=== PATIENT | female | born 1955 | race Caucasian/White ===

== ENCOUNTER → 2019-10-29 11:32 | Outpatient (BNVA) | payer BC, SELFPAY | PROVIDERS: Visit Provider Family Medicine | DX: M06.09 Rheumatoid arthritis without rheumatoid factor, multiple sites (principal) | CPT/HCPCS: 80053; 85007; 85027 ==

== ENCOUNTER → 2022-01-14 11:49 | Outpatient (BNVA) | payer MEDICARE, SELFPAY | PROVIDERS: Visit Provider Family Medicine | DX: R39.9 Unspecified symptoms and signs involving the genitourinary system (principal); N30.90 Cystitis, unspecified without hematuria | CPT/HCPCS: 81000 ==

== ENCOUNTER 2022-09-19 20:00 | Emergency (ER) | payer MEDICARE, SELFPAY ==
--- NOTE | 2022-09-19 20:01 | XRR_ITS ---
PROCEDURE INFORMATION: Exam: XR Chest Exam date and time: 09/19/2022 8:36 PM Age: 67 years old Clinical indication: Pain; Chest pressure; Additional info: Cp TECHNIQUE: Imaging protocol: Radiologic exam of the chest. Views: 1 view. COMPARISON: No relevant prior studies available. FINDINGS: Lungs: Right upper lobe 12 mm nodule, likely reflecting a calcified granuloma, chest CT could confirm this. Pleural spaces: Unremarkable. No pleural effusion. No pneumothorax. Heart/Mediastinum: Unremarkable. No cardiomegaly. Bones/joints: Unremarkable. XR/XR chest 1V portable [id number] IMPRESSION: Right upper lobe 12 mm nodule, likely reflecting a calcified granuloma, chest CT could confirm this.
[2022-09-19 20:04] VITALS: BP 164/91; PULSE 77; RESP 16; TEMP 36.7; O2SAT 97
--- NOTE | 2022-09-19 20:08 | ECG_ITS ---
[facility] Test Date: 2022-09-19 Pat Name: Sindi Linton Department: Room: Gender: Female Production Reproduction Manager: : 1955 Requested By: Sonia Samano Order Number: [id number] Birttney MD: Lorena Sanderson M.D. Measurements Intervals [place] Rate: 71 P: 49 SC: 161 QRS: 7 QRSD: 108 T: 37 QT: 407 QTc: 444 Interpretive Statements SINUS RHYTHM LOW QRS VOLTAGE IN PRECORDIAL LEADS [QRS DEFLECTION < 1.0 mV IN CHEST LEADS] No previous ECG available for comparison Electronically Signed On 09-19-2022 22:24:31 JEWELRY COATER by Lorena Sanderson M.D. [email or web address] Oilmemorial hospitalecoATM/store/NU/[id number] f
[2022-09-19 20:25] VITALS: BP 160/85; PULSE 75; RESP 17; O2SAT 97
--- NOTE | 2022-09-19 20:32 | W.ED.CHESTPA ---
HPI - Chest Pain General: Chief Complaint: Chest Pain Stated Complaint: cp Time Seen by Provider: 09/19/22 20:17 Source: patient Mode of arrival: ambulatory Limitations: no limitations History of Present Illness: 67-year-old female states started having some burning chest pain this afternoon around 1 states she thought it may be reflux she has had reflux multiple times for states its persisted states pain is mild nature she rates it a 2 out of 10 she is in no distress here she denies any worsening proving factors denies any shortness of breath denies any nausea or diaphoresis. Associated symptoms: Deny abdominal pain, dyspnea, fever(s), nausea or vomiting Review of Systems Const: Denies: fever(s), chills, body aches or change in appetite Eyes: Denies: blurry vision or eye discomfort ENMT: Denies: throat pain or dental pain Card: Reports: chest pain Resp: Denies: dyspnea GI: Denies: abdominal pain, nausea, vomiting or diarrhea : Denies: dysuria Musc: Denies: neck pain or back pain Skin/Breast: Denies: rash Neuro: Denies: headache(s) Psych: Denies: depression Tru/Lymph: Denies: easy bruising All/Imm: Denies: urticaria PFSH ED PFSH: Medical History (Updated 09/19/22 @ 21:07 by Sonia Samano MD) No pertinent past medical history Social History (Updated 09/19/22 @ 20:34 by Sonia Samano MD) Smoking and tobacco status: never smoked Substance/Drug Use: never Physical Exam Const: COMMON NORMALS: no acute distress, patient oriented x3 and healthy appearing HENMT: COMMON NORMALS: normocephalic and atraumatic HEAD & SCALP: normocephalic and atraumatic Eye: COMMON NORMALS: Equal, round and reactive pupils present and EOMs intact bilaterally PUPIL: Yes Equal, round and reactive pupils present Neck/C-Spine: COMMON NORMALS: full ROM and supple Chest: COMMONS NORMALS: normal inspection of the chest and normal palpation of entire chest wall Resp: COMMON NORMALS: normal respiratory effort, No retractions, No use of accessory muscles and clear to auscultation bilaterally AUSCULTATION: clear to auscultation bilaterally Cardio: COMMON NORMALS: regular rate, regular rhythm and No murmurs present (Cardio) RATE: regular rate RHYTHM: regular rhythm GI: COMMON NORMALS: Normal to inspection, nondistended, normoactive bowel sounds present, Soft to palpation, non-tender and no masses PALPATION: Yes Soft to palpation Extremity: COMMON NORMALS: normal to inspection and full ROM Neuro: COMMON NORMALS: patient oriented x3, moves all extremities and no focal motor deficits Psych: COMMON NORMALS: mental status grossly normal, Normal thought process present and cooperative THOUGHT PROCESS: Normal thought process present Skin: COMMON NORMALS: no rashes or lesions noted and no wounds GENERAL SKIN EXAM: no rashes or lesions noted Course Vital Signs: Vital signs: Vital Signs Temperature 98.0 F 09/19/22 20:04 Pulse Rate 75 09/19/22 20:25 Respiratory Rate 17 09/19/22 20:25 Blood Pressure 160/85 09/19/22 20:25 Pulse Oximetry 97 09/19/22 20:25 Oxygen Delivery Me thod 09/19/22 20:25 MDM - Chest Pain Medical Decision Making Patient presents here with chest pain is atypical in nature GI cocktail completely took her pain away is likely reflux her troponin here is normal I see no sign of acute coronary syndrome I feel she is stable for discharge she is to follow-up with PCP and return if worsening she understands agrees to plan. Lab Data 09/19/22 20:30 09/19/22 20:30 Radiology Impressions Chest X-Ray 09/19/22 20:01 IMPRESSION: Right upper lobe 12 mm nodule, likely reflecting a calcified granuloma, chest CT could confirm this. Laboratory Results WBC 4.1 10^3/uL (4.0-10.0) 09/19/22 20:30 RBC 4.80 10^6/uL (4.1-5.3) 09/19/22 20:30 Hgb 13.8 g/dL (11.5-15.3) 09/19/22 20:30 Hct 42.7 % (37.0-47.0) 09/19/22 20:30 MCV 89.0 fl (81-99) 09/19/22 20:30 MCH 28.8 pg (28.0-34.0) 09/19/22 20:30 MCHC 32.3 g/dL (30.0-36.0) 09/19/22 20:30 RDW 13.2 % (12.1-15.1) 09/19/22 20:30 Plt Count 228 10^3/cmm (130-400) 09/19/22 20: MPV 9.3 fL (7.4-10.4) 09/19/22 20:30 Neut % (Auto) 69.5 % 09/19/22 20:30 Lymph % (Auto) 21.2 % 09/19/22 20: [place] % (Auto) 8.9 % 09/19/22 20: Eos % (Auto) 0.0 % 09/19/22 20: Baso % (Auto) 0.2 % 09/19/22 20: Neut # (Auto) 2.82 10^3/uL (1.8-7.7) 09/19/22 20: Lymph # (Auto) 0.9 10^3/uL (0.8-4.8) 09/19/22 20: [place] # (Auto) 0.4 10^3/uL (0.2-0.9) 09/19/22 20: Eos # (Auto) 0.0 10^3/uL (0.0-0.8) 09/19/22 20: Baso # (Auto) 0.0 10^3/uL (0.0-0.1) 09/19/22 20: Nucleated RBC % (auto) 0 % 09/19/22 20: Nucleated RBCs # 0.0 /100WBC 09/19/22 20:30 Sodium 139 mmol/L (136-145) 09/19/22 20: Chloride 102 mmol/L (98-107) 09/19/22 20: Carbon Dioxide 26 mmol/L (22-29) 09/19/22 20: BUN 13 mg/dL (8-23) 09/19/22 20: Creatinine 0.9 mg/dL (0.5-0.9) 09/19/22 20: Glucose 90 mg/dL (65-115) 09/19/22 20: Calculated Osmolality 288 mOsm/kg (285-295) 09/19/22 20: Calcium 9.0 mg/dL (8.5-10.5) 09/19/22 20: Total Bilirubin 0.4 mg/dL (0.15-1.2) 09/19/22 20:30 AST 27 U/L (0-32) 09/19/22 20:30 ALT 16 U/L (0-33) 09/19/22 20:30 Alkaline Phosphatase 99 U/L (35-105) 09/19/22 20:30 Troponin T Baseline 7 ng/L (0-10) 09/19/22 20:30 Total Protein 7.0 g/dL (6.6-8.7) 09/19/22 20:30 Albumin 4.3 g/dL (3.5-5.2) 09/19/22 20:30 Globulin 2.7 g/dL (1.3-4.6) 09/19/22 20:30 Discharge Plan Discharge Patient Disposition: Home Clinical Impression: Atypical chest pain Condition: Stable Prescriptions: No Action hydroxychloroquine [Plaquenil] 200 mg tablet 100 mg PO DAILY levothyroxine 100 mcg capsule 100 mcg PO DAILY nitrofurantoin macrocrystal 100 mg capsule 100 mg PO BID 7 Days Qty: 14 0RF Rx Instructions: must administer with a meal/food Discharge Orders: Discharge ED (Routine); Ordered 09/19/22 Ordered By: Sonia Samano Discharge Diet: Advance as tolerated Discharge Activity: Resume usual activity Patient Instructions: Chest Pain (ED) Coding Level of Care Code ED Crystal Inspector for Portia Bailey
[2022-09-19] MEDS: lidocaine 2% viscous 15 ML, aluminum-mag hydrox-simethicon 30 ML, sucralfate oral liq 1 GM PO (20:38)
[2022-09-19 20:44] LABS: Basophils % 0.2 %; Hematocrit 42.7 % (37.0-47.0); Hemoglobin 13.8 g/dL (11.5-15.3); Lymphocytes # 0.9 10^3/uL (0.8-4.8); Lymphocytes % 21.2 %; Mean Corpuscular HGB Conc 32.3 g/dL (30.0-36.0); Mean Corpuscular Hemoglobin 28.8 pg (28.0-34.0); Mean Platelet Volume 9.3 fL (7.4-10.4); Monocytes # 0.4 10^3/uL (0.2-0.9); Monocytes % 8.9 %; Neutrophils # 2.82 10^3/uL (1.8-7.7); Neutrophils % 69.5 %; Nucleated Red Blood Cells % 0 %; Platelet Count 228 10^3/cmm (130-400); Red Cell Distribution Width 13.2 % (12.1-15.1); White Blood Count 4.1 10^3/uL (4.0-10.0)
[2022-09-19 21:01] LABS: Troponin(5th) Baseline 7 ng/L (0-10)
[2022-09-19 21:03] LABS: Alanine Aminotransferase 16 U/L (0-33); Albumin Level 4.3 g/dL (3.5-5.2); Alkaline Phosphatase 99 U/L (35-105); Aspartate Amino Transferase 27 U/L (0-32); Blood Urea Nitrogen 13 mg/dL (8-23); Carbon Dioxide 26 mmol/L (22-29); Chloride 102 mmol/L (98-107); Globulin 2.7 g/dL (1.3-4.6); Glomerular Filtration Rate 62.5 mL/min (90-130); Glucose 90 mg/dL (65-115); Osmolality Calculated 288 mOsm/kg (285-295); Sodium 139 mmol/L (136-145); Total Bilirubin 0.4 mg/dL (0.15-1.2)
[2022-09-19 21:14] VITALS: BP 134/73; PULSE 70; RESP 17; O2SAT 96
[2022-09-19 21:23] LABS: Anion Gap 14.7 (5-19); Potassium 3.7 mmol/L (3.5-5.1)
[2022-09-19 21:27] VITALS: BP 134/73; PULSE 66; RESP 12; O2SAT 98
== END 2022-09-19 21:22 | disposition home or self-care (01) ==
PROVIDERS: Emergency Provider Emergency Medicine
DX: R07.89 Other chest pain (principal)
CPT/HCPCS: 71045; 80053; 84484; 85025; 93005; 99285

== ENCOUNTER → 2023-08-28 14:03 | Outpatient (BNVA) | payer MEDICARE, SELFPAY | PROVIDERS: PCP Family Medicine; Visit Provider Family Medicine | DX: E03.9 Hypothyroidism, unspecified (principal); M06.00 Rheumatoid arthritis without rheumatoid factor, unspecified site; Z13.6 Encounter for screening for cardiovascular disorders | CPT/HCPCS: 80053; 80061; 84443; 85025 ==

== ENCOUNTER 2023-09-24 19:04 | Emergency (ER) | payer MEDICARE, SELFPAY ==
--- NOTE | 2023-09-24 19:06 | XRR_ITS ---
PROCEDURE INFORMATION: Exam: XR Chest Exam date and time: 09/24/2023 7:22 PM Age: 68 years old Clinical indication: Chest wall pain; Additional info: Cp TECHNIQUE: Imaging protocol: Radiologic exam of the chest. Views: 1 view. COMPARISON: CR XR chest 1V portable [id number] 09/19/2022 8:36 PM FINDINGS: Tubes, catheters and devices: Cholecystectomy clips and gastric lap band again noted. Lungs: Chronic calcified granuloma in the right upper lung zone. Minimal streaky scarring in the right mid to lower lung zone, unchanged. Pleural spaces: Unremarkable. No pleural effusion. No pneumothorax. Heart/Mediastinum: Unremarkable. No cardiomegaly. Bones/joints: Unremarkable. XR/XR chest 1V portable [id number] IMPRESSION: No acute plain radiographic cardiopulmonary abnormality or interval change from 09/19/2022.
[2023-09-24 19:07] VITALS: BP 155/82; PULSE 80; RESP 16; TEMP 36.4; O2SAT 97; BMI 36.8
--- NOTE | 2023-09-24 19:08 | ECG_ITS ---
[facility] Test Date: 2023-09-24 Pat Name: Sindi Linton Department: Room: Gender: Female Mutuel Department Manager: : 1955 Requested By: Sonia Samano Order Number: [id number] Brittney MD: Chet Alonzo M.D. Measurements Intervals [place] Rate: 83 P: 55 MO: 174 QRS: -9 QRSD: 110 T: 30 QT: 390 QTc: 459 Interpretive Statements SINUS RHYTHM POSSIBLE ANTERIOR MYOCARDIAL INFARCTION , PROBABLY OLD [30 ms Q WAVE IN V3/V4, OR R < 0.2 mV IN V4] Compared to ECG 09/19/2022 20:08:09 Myocardial infarct finding now present Electronically Signed On 09-25-2023 7:24:26 DEHYDRATION UNIT OPERATOR by Chet Alonzo M.D. [email or web address]/[id number] f
--- NOTE | 2023-09-24 19:08 | ECG_ITS ---
[facility] Test Date: 2023-09-24 Pat Name: Sindi Linton Department: Room: Gender: Female Crew Lead: : 1955 Requested By: Sonia Samano Order Number: [id number] Brittney MD: Chet Alonzo M.D. Measurements Intervals [place] Rate: 83 P: 55 ID: [id number] QRS: -9 QRSD: 110 T: 30 QT: 390 QTc: 459 Interpretive Statements SINUS RHYTHM POSSIBLE ANTERIOR MYOCARDIAL INFARCTION , PROBABLY OLD [30 ms Q WAVE IN V3/V4, OR R < 0.2 mV IN V4] Compared to ECG 09/19/2022 20:08:09 Myocardial infarct finding now present Electronically Signed On 09-25-2023 7:25:30 SOLAR FIELD INSTALLATION CREW MEMBER by Chet Alonzo M.D. [id number] f
[2023-09-24 20:00] VITALS: BP 137/90; PULSE 71; RESP 16; O2SAT 96
[2023-09-24 20:10] LABS: Hematocrit 42.4 % (36-47); Lymphocytes # 0.9 10^3/uL (0.8-4.8); Lymphocytes % 28.3 %; Mean Corpuscular HGB Conc 33.3 g/dL (30-55); Mean Corpuscular Volume 87.2 fl (85-98); Mean Platelet Volume 9.5 fL (7.4-10.4); Monocytes # 0.4 10^3/uL (0.2-0.9); Monocytes % 12.3 %; Neutrophils # 1.93 10^3/uL (1.8-7.7); Neutrophils % 59.4 %; Nucleated Red Blood Cells % 0 %; Platelet Count 206 10^3/cmm (157-399); Red Blood Count 4.86 10^6/uL (3.85-5.65); Red Cell Distribution Width 13.5 % (12.1-15.1); White Blood Count 3.25 10^3/uL (3.29-11.43)
--- NOTE | 2023-09-24 20:18 | W.ED.CHESTPA ---
HPI - Chest Pain General: Chief Complaint: Chest Pain Stated Complaint: cp Time Seen by Provider: 09/24/23 20:00 Source: patient Mode of arrival: ambulatory Limitations: no limitations History of Present Illness: 68-year-old female states that over the last 3 to 4 days she has been having intermittent chest pains she states pains been mild in nature she denies any nausea or diaphoresis. She denies any cough or fever. She states she is currently pain-free she has had a history of reflux. She denies any radiation of her pain. She is not a smoker no known history of heart disease Associated symptoms: Deny abdominal pain, dyspnea, fever(s), nausea or vomiting Review of Systems Const: Denies: fever(s), chills, body aches or change in appetite ENMT: Denies: throat pain or dental pain Card: Reports: chest pain Resp: Denies: dyspnea GI: Denies: abdominal pain, nausea, vomiting or diarrhea : Denies: dysuria Musc: Denies: neck pain or back pain Skin/Breast: Denies: rash Neuro: Denies: headache(s) PFSH ED PFSH: Medical History Seronegative rheumatoid arthritis History of thyroid cancer Hypothyroid Surgical History History of thyroidectomy History of abdominoplasty History of cholecystectomy History of laparoscopic adjustable gastric banding History of total hysterectomy with bilateral salpingo-oophorectomy (BSO) benign, pelvic organ prolapse History of appendectomy Family History Mother Lymphoma Father Prostate cancer Sister Lung cancer smoker Brother Colon cancer Brother CAD (coronary artery disease) Stroke Social History Smoking and tobacco/nicotine status: never used tobacco/nicotine Second hand smoke exposure: No Alcohol intake: never Substance/Drug Use: never Lives independently: Yes Household members: spouse Marital status: Marital status details: 49 years in 2023 Number of children: 3 Number of grandchildren: 6 service: No Current occupational status: retired Previous occupational history: worked at [employer] for 34 years Current gender identity: Female Ariela/Confucianism: L[employer] Special ariela needs: No Agree to transfusion: Yes Physical Exam Const: COMMON NORMALS: no acute distress, patient oriented x3 and healthy appearing HENMT: COMMON NORMALS: normocephalic and atraumatic HEAD & SCALP: normocephalic and atraumatic Neck/C-Spine: COMMON NORMALS: full ROM and supple Chest: COMMONS NORMALS: normal inspection of the chest Resp: COMMON NORMALS: normal respiratory effort and clear to auscultation bilaterally AUSCULTATION: clear to auscultation bilaterally Cardio: COMMON NORMALS: regular rate, regular rhythm and No murmurs present (Cardio) RATE: regular rate RHYTHM: regular rhythm GI: COMMON NORMALS: non-tender Extremity: COMMON NORMALS: normal to inspection and full ROM Neuro: COMMON NORMALS: patient oriented x3, moves all extremities and no focal motor deficits Psych: COMMON NORMALS: mental status grossly normal, Normal thought process present and cooperative THOUGHT PROCESS: Normal thought process present Skin: COMMON NORMALS: no rashes or lesions noted and no wounds GENERAL SKIN EXAM: no rashes or lesions noted Course Vital Signs: Vital signs: Vital Signs Temperature 97.6 F 09/24/23 19:07 Pulse Rate 67 09/24/23 20:53 Respiratory Rate 16 09/24/23 20:53 Blood Pressure 100/64 09/24/23 20:53 Pulse Oximetry 95 09/24/23 20:53 Oxygen Delivery Me thod Room Air 09/24/23 20:53 MDM - Chest Pain Medical Decision Making Patient presents for chest pains atypical in nature has been going on for days her troponin here is negative she has no signs of ACS she is chest pain-free currently no signs of dissection or pulmonary embolism she stable for discharge she is follow-up with PCP and return if worsening Medical Records I reviewed the patient's medical records. Lab Data I reviewed the patient's lab results. 09/24/23 19:42 09/24/23 19:42 Radiology Impressions Chest X-Ray 09/24/23 19:06 IMPRESSION: No acute plain radiographic cardiopulmonary abnormality or interval change from 09/19/2022. Laboratory Results WBC 3.25 10^3/uL (3.29-11.43) L 09/24/23 19:42 RBC 4.86 10^6/uL (3.85-5.65) 09/24/23 19:42 Hgb 14.10 g/dL (11.27-16.99) 09/24/23 19:42 Hct 42.4 % (36-47) 09/24/23 19:42 MCV 87.2 fl (85-98) 09/24/23 19:42 MCH 29.0 pg (27-33) 09/24/23 19:42 MCHC 33.3 g/dL (30-55) 09/24/23 19:42 RDW 13.5 % (12.1-15.1) 09/24/23 19:42 Plt Count 206 10^3/cmm (157-399) 09/24/23 19:42 MPV 9.5 fL (7.4-10.4) 09/24/23 19:42 Neut % (Auto) 59.4 % 09/24/23 19:42 Lymph % (Auto) 28.3 % 09/24/23 19:42 [place] % (Auto) 12.3 % 09/24/23 19:42 Eos % (Auto) 0.0 % 09/24/23 19:42 Baso % (Auto) 0.0 % 09/24/23 19:42 Neut # (Auto) 1.93 10^3/uL (1.8-7.7) 09/24/23 19:42 Lymph # (Auto) 0.9 10^3/uL (0.8-4.8) 09/24/23 19:42 [place] # (Auto) 0.4 10^3/uL (0.2-0.9) 09/24/23 19:42 Eos # (Auto) 0.0 10^3/uL (0.0-0.8) 09/24/23 19:42 Baso # (Auto) 0.0 10^3/uL (0.0-0.1) 09/24/23 19: Nucleated RBC % (auto) 0 % 09/24/23 19: Nucleated RBCs # 0.0 /100WBC 09/24/23 19:42 Sodium 143 mmol/L (136-145) 09/24/23 19:42 Potassium 3.5 mmol/L (3.5-5.1) 09/24/23 19:42 Chloride 104 mmol/L (98-107) 09/24/23 19:42 Carbon Dioxide 28 mmol/L (22-29) 09/24/23 19:42 Anion Gap 14.5 (5-19) 09/24/23 19:42 BUN 16 mg/dL (8-23) 09/24/23 19:42 Creatinine 0.8 mg/dL (0.5-0.9) 09/24/23 19:42 GFR Calculation 71.3 mL/min (90-130) L 09/24/23 19:42 Glucose 114 mg/dL (65-115) 09/24/23 19:42 Calculated Osmolality 298 mOsm/kg (285-295) H 09/24/23 19:42 Calcium 9.2 mg/dL (8.5-10.5) 09/24/23 19:42 Total Bilirubin 0.4 mg/dL (0.15-1.2) 09/24/23 19:42 AST 27 U/L (0-32) 09/24/23 19:42 ALT 24 U/L (0-33) 09/24/23 19:42 Alkaline Phosphatase 103 U/L (35-105) 09/24/23 19:42 Troponin T Baseline 10 ng/L (0-10) 09/24/23 19:42 Total Protein 7.1 g/dL (6.6-8.7) 09/24/23 19:42 Albumin 4.6 g/dL (3.5-5.2) 09/24/23 19:42 Globulin 2.5 g/dL (1.3-4.6) 09/24/23 19:42 Lipase 44 U/L (13-60) 09/24/23 19:42 All radiology interpretation(s) finalized by discharge EKG Data EKG 1: I personally reviewed and interpreted this EKG as follows: EKG interpretation date: 09/24/23 EKG interpretation time: 19:08 Interpretation: nsr hr [address] elevation qrs 110 qtc 430 Discharge Plan Discharge Patient Disposition: Home Clinical Impression: Chest pain Condition: Stable Prescriptions: No Action clobetasol 0.05 % cream topical fluocinonide 0.05 % cream 1 applic topical DAILY fluocinonide 0.05 % solution 1 applic topical .qhs PRN hydroxychloroquine [Plaquenil] 200 mg tablet 200 mg PO DAILY epinephrine 0.3 mg/0.3 mL auto-injector 0.3 mg IM povidone-iodine [Betadine Swabsticks] 10 % swab 1 applic topical ONCE Qty: 1 0RF levothyroxine 112 mcg tablet 112 mcg PO DAILY Qty: 60 0RF Discharge Orders: Discharge ED (Routine); Ordered 09/24/23 Ordered By: Sonia Samano Referrals: Linn Lyon MD [Primary Care Provider] - 1-3 days Discharge Diet: Advance as tolerated Discharge Activity: Resume usual activity Patient Instructions: Chest Pain (ED) Coding Level of Care Code ED Paste Up Artist for Portia Bailey
[2023-09-24 20:36] LABS: Alanine Aminotransferase 24 U/L (0-33); Albumin Level 4.6 g/dL (3.5-5.2); Alkaline Phosphatase 103 U/L (35-105); Anion Gap 14.5 (5-19); Aspartate Amino Transferase 27 U/L (0-32); Blood Urea Nitrogen 16 mg/dL (8-23); Calcium 9.2 mg/dL (8.5-10.5); Carbon Dioxide 28 mmol/L (22-29); Chloride 104 mmol/L (98-107); Creatinine Clr Calc Pharmacy 68.0642; Globulin 2.5 g/dL (1.3-4.6); Glomerular Filtration Rate 71.3 mL/min (90-130); Glucose 114 mg/dL (65-115); Lipase 44 U/L (13-60); Osmolality Calculated 298 mOsm/kg (285-295); Potassium 3.5 mmol/L (3.5-5.1); Sodium 143 mmol/L (136-145); Total Bilirubin 0.4 mg/dL (0.15-1.2); Total Protein 7.1 g/dL (6.6-8.7)
[2023-09-24 20:37] LABS: Troponin(5th) Baseline 10 ng/L (0-10)
[2023-09-24] MEDS: aspirin 81 mg Chew Tablet 324 MG PO (20:40)
[2023-09-24 20:53] VITALS: BP 100/64; PULSE 67; RESP 16; O2SAT 95
[2023-09-24 21:17] VITALS: BP 108/67; PULSE 72; RESP 18; O2SAT 98
== END 2023-09-24 21:18 | disposition home or self-care (01) ==
PROVIDERS: Emergency Provider Emergency Medicine; PCP Family Medicine
DX: R07.9 Chest pain, unspecified (principal); Z85.850 Personal history of malignant neoplasm of thyroid
CPT/HCPCS: 36415; 71045; 80053; 83690; 84484; 85025; 93005; 99285

== ENCOUNTER → 2023-10-07 09:07 | Outpatient (BNVA) | payer MEDICARE, SELFPAY | PROVIDERS: PCP Family Medicine; Referring Provider Family Medicine; Visit Provider Surgery | DX: Z12.11 Encounter for screening for malignant neoplasm of colon (principal) | CPT/HCPCS: 99024; 99203 ==

== ENCOUNTER → 2023-10-27 08:31 | Outpatient (BNVA) | payer MEDICARE, SELFPAY | PROVIDERS: PCP Family Medicine; Visit Provider Family Medicine | DX: E03.9 Hypothyroidism, unspecified (principal) | CPT/HCPCS: 84443 ==

== ENCOUNTER → 2024-01-20 14:54 | Outpatient (BNVA) | payer MEDICARE, SELFPAY | PROVIDERS: PCP Family Medicine; Visit Provider Family Medicine | DX: R35.0 Frequency of micturition (principal) | CPT/HCPCS: 81000 ==

== ENCOUNTER → 2024-07-19 14:24 | Outpatient (BNVA) | payer MEDICARE, SELFPAY | PROVIDERS: PCP Family Medicine; Visit Provider Nurse Practitioner Family | DX: R39.9 Unspecified symptoms and signs involving the genitourinary system (principal) | CPT/HCPCS: 81000 ==

== ENCOUNTER → 2024-08-25 14:44 | Outpatient (BNVA) | payer MEDICARE, SELFPAY | PROVIDERS: PCP Family Medicine; Visit Provider Nurse Practitioner Family | DX: R39.9 Unspecified symptoms and signs involving the genitourinary system (principal); N39.0 Urinary tract infection, site not specified; M65.4 Radial styloid tenosynovitis [de Quervain] | CPT/HCPCS: 81000 ==

== ENCOUNTER 2024-09-19 22:21 | Emergency (ER) | payer MEDICARE, SELFPAY ==
--- NOTE | 2024-09-19 22:27 | ECG_ITS ---
[facility] Test Date: 2024-09-19 Pat Name: Sindi Linton Department: Room: Gender: Female Shipping Order Clerk: : 1955 Requested By: Dilan Bianchi Order Number: [id number] Brittney MD: JASE MARTÍNEZ Measurements Intervals [place] Rate: 78 P: 59 NE: 172 QRS: 29 QRSD: 101 T: 25 QT: 379 QTc: 433 Interpretive Statements SINUS RHYTHM LOW QRS VOLTAGE IN PRECORDIAL LEADS [QRS DEFLECTION < 1.0 mV IN CHEST LEADS] POSSIBLE ANTERIOR MYOCARDIAL INFARCTION , PROBABLY OLD [30 ms Q WAVE IN V3/V4, OR R < 0.2 mV IN V4] INFERIOR MYOCARDIAL INFARCTION , PROBABLY OLD [40+ ms Q WAVE AND/OR ST/T ABNORMALITY IN II/aVF] Compared to ECG 09/24/2023 19:08:26 Low QRS voltage now present Myocardial infarct finding still present Electronically Signed On 09-21-2024 23:36:31 SINTER PRESS OPERATOR by JASE MARTÍNEZ [id number]
[2024-09-19 22:29] VITALS: BP 134/77; PULSE 79; RESP 17; TEMP 36.7; O2SAT 98; BMI 38.7
--- NOTE | 2024-09-19 22:56 | XRR_ITS ---
PROCEDURE INFORMATION: Exam: XR Chest Exam date and time: 09/19/2024 11:11 PM Age: 69 years old Clinical indication: Shortness of breath; Chest pressure; C/O chest pain with SOB. ; Additional info: Cp SOB TECHNIQUE: Imaging protocol: Radiologic exam of the chest. Views: 1 view. COMPARISON: CR XR chest 1V portable [id number] 09/24/2023 7:22 PM FINDINGS: Lungs: Chronic calcified granuloma within right upper lung zone. Persistent minimal streaky scarring within right mid to lower lung zone, unchanged. No focal consolidation. Pleural spaces: Unremarkable. No pleural effusion. No pneumothorax. Heart/Mediastinum: Unremarkable. No cardiomegaly. Bones/joints: Unremarkable. XR/XR chest 1V portable [id number] IMPRESSION: No acute intrathoracic process. No interval change.
--- NOTE | 2024-09-19 23:25 | ECG_ITS ---
[facility] Pat Name: Sindi Linton Department: Room: Gender: Female Scalp Specialist: : 1955 Requested By: Dilan Bianchi Order Number: [id number] Reading MD: JASE MARTÍNEZ Measurements Intervals [place] Rate: 74 P: 62 [place]: 173 QRS: 37 QRSD: 94 T: 38 QT: 400 QTc: 446 Interpretive Statements SINUS RHYTHM LOW QRS VOLTAGE IN PRECORDIAL LEADS [QRS DEFLECTION < 1.0 mV IN CHEST LEADS] POSSIBLE ANTERIOR MYOCARDIAL INFARCTION , PROBABLY OLD [30 ms Q WAVE IN V3/V4, OR R < 0.2 mV IN V4] PROBABLE INFERIOR MYOCARDIAL INFARCTION , OF INDETERMINATE AGE [35 ms Q WAVE IN II/aVF] Compared to ECG 09/24/2023 19:08:26 Low QRS voltage now present Myocardial infarct finding still present Electronically Signed On 09-21-2024 23:36:23 COMPENSATION AGENT by JASE MARTÍNEZ [id number] [id number]
[2024-09-19 23:29] VITALS: BP 156/75; PULSE 78; RESP 23; O2SAT 99
[2024-09-19 23:45] VITALS: BP 149/72; PULSE 70; RESP 15; O2SAT 98
[2024-09-19 23:53] LABS: Hematocrit 39.1 % (36-47); Lymphocytes # 0.8 10^3/uL (0.8-4.8); Lymphocytes % 19.6 %; Mean Corpuscular HGB Conc 32.5 g/dL (30-55); Mean Corpuscular Hemoglobin 28.1 pg (27-33); Mean Corpuscular Volume 86.5 fl (85-98); Mean Platelet Volume 8.9 fL (7.4-10.4); Monocytes # 0.7 10^3/uL (0.2-0.9); Monocytes % 17.1 %; Neutrophils # 2.47 10^3/uL (1.8-7.7); Nucleated Red Blood Cells % 0 %; Platelet Count 201 10^3/cmm (157-399); Red Blood Count 4.52 10^6/uL (3.85-5.65); Red Cell Distribution Width 13.5 % (12.1-15.1); White Blood Count 3.92 10^3/uL (3.29-11.43)
--- NOTE | 2024-09-19 23:53 | ED_ITS ---
HPI - Arrhythmia/Palpitations 2 General: Chief Complaint: Arrhythmia/Palpitations Stated Complaint: Heart Skip Beats Time Seen by Provider: 09/19/24 23:11 History of Present Illness: 69-year-old female with no history of co ronary disease. She presents with essentially palpitations that started at rest this evening at home. She complains of jumping of her heart sensation with associated chest pressure and some shortness of breath. Currently symptoms are resolved. No fever, no cough, no vomiting or diarrhea. She has had some episodes of intermittent vomiting associated with bowel movements Related Data Home Medications ?Medication ?Instructions ?Recorded ?Confirmed epinephrine 0.3 mg/0.3 mL 0.3 mg IM 03/03/23 08/25/24 injection, auto-injector clobetasol 0.05 % topical cream topical 08/28/2308/25 fluocinonide 0.05 % topical cream 1 applic topical MILAD LY 08/28/23 08/25/24 fluocinonide 0.05 % topical 1 applic topical .qhs PRN 08/28/23 08/25/24 solution hydroxychloroquine 200 mg tablet 200 mg PO DAILY 08/2808/25/24 (Plaquenil) Previous Rx's ?Medication ?Instructions ?Recorded famotidine 20 mg tablet 20 mg PO BID #180 tabs 01/19 cefdinir 300 mg capsule 300 mg PO BID 7 days #14 cap s 04/05/24 levothyroxine 112 mcg tablet 112 mcg PO DAILY #90 tabs 06/28/24 prednisone 20 mg tablet 20 mg PO BID #10 tabs sulfamethoxazole 800 1 tab PO BID #14 tabs mg-trimethoprim 160 mg tablet (Bactrim DS) Allergies Allergy/AdvReac Type Severity Reaction Status Date / Time amoxicillin Allergy Mild SWELLING Verified 09/19/24 22:33 ampicillin Allergy Unknown Verified 09/19/24 22:33 azathioprine (From Imuran) Allergy ALGY-Swell Verified 09/19/24 22:33 Lip/Tongue/Throat azithromycin Allergy ALGY-Swell Verified 09/19/24 22:33 Lip/Tongue/Throat Influenza Virus Vaccines Allergy local Verified 09/19/24 22:33 reaction PFSH ED 2 PFSH: Medical History Seronegative rheumatoid arthritis History of thyroid cancer Hypothyroid Surgical History History of thyroidectomy History of abdominoplasty History of cholecystectomy History of laparoscopic adjustable gastric banding History of total hysterectomy with bilateral salpingo-oophorectomy (BSO) benign, pelvic organ prolapse History of appendectomy Family History Mother Lymphoma Diverticula of colon Father Prostate cancer Sister Lung cancer smoker Brother Colon cancer Brother CAD (coronary artery disease) Stroke Social History Smoking and tobacco/nicotine status: never used tobacco/nicotine Second hand smoke exposure: No Alcohol intake: never Substance/Drug Use: never Lives independently: Yes Household members: spouse Marital status: Marital status details: 49 years in 2023 Number of children: 3 Number of grandchildren: 6 service: No Current occupational status: retired Previous occupational history: worked at [employer] for 34 years Current gender identity: Female Ariela/Restorationist: Syn[employer] Special ariela needs: No Agree to transfusion: Yes Physical Exam 2 Const: COMMON NORMALS: no acute distress GENERAL APPEARANCE: cooperative; not ill appearing and not frail appearing HENMT: COMMON NORMALS: normocephalic, atraumatic and Normal external nose present HEAD & SCALP: normocephalic and atraumatic FACE & SINUS: normal facial exam and face symmetric NOSE: Normal external nose present Eye: COMMON NORMALS: Equal, round and reactive pupils present and EOMs intact bilaterally PUPIL: Yes Equal, round and reactive pupils present Neck/C-Spine: GENERAL: Yes trachea midline Chest: CHEST: Yes Symmetrical chest wall rise Resp: COMMON NORMALS: normal respiratory effort, No retractions, No use of accessory muscles and clear to auscultation bilaterally AUSCULTATION: clear to auscultation bilaterally Cardio: COMMON NORMALS: regular rate and regular rhythm RATE: regular rate RHYTHM: regular rhythm GI: COMMON NORMALS: Normal to inspection, nondistended, normoactive bowel sounds present Extremity: COMMON NORMALS: no pedal edema Neuro: IGNACIO COMA SCALE: document GCS findings [place] coma scale eye opening: Spontaneous Ign[place] coma scale verbal response: Orientated [place] coma scale motor response: Obey commands [place] coma scale total score: 15 S ENSORY EXAM: Yes extremities (intact) Psych: COMMON NORMALS: speech normal SPEECH: Yes normal speech Skin: COMMON NORMALS: no rashes or lesions noted GENERAL SKIN EXAM: no rashes or lesions noted Course 2 Vital Signs: Vital signs: Vital Signs Temperature 98.1 F 09/19/24 22:29 Pulse Rate 72 09/20/24 03:22 Respiratory Rate 22 H 09/20/24 03:22 Blood Pressure 121/74 09/20/24 03:22 Pulse Oximetry 93 09/20/24 03:22 Oxygen Delivery Me thod Room Air 09/20/24 01:29 MDM - Arrhythmia/Palpitations Medical Decision Making 69-year-old female with palpitations. EKG shows a normal sinus rhythm no acute ST wave changes. She has been regular on the monitor. Normotensive. CBC is normal. BMP is normal. Chest x-ray shows no acute process. TSH is 5, mildly high. She is asymptomatic at this point. Will release for outpatient follow- up. To return for worsening symptoms. Lab Data 09/19/24 23:43 09/19/24 23:43 Radiology Impressions Chest X-Ray 09/19/24 22:56 IMPRESSION: No acute intrathoracic process. No interval change. Laboratory Results WBC 3.92 10^3/uL (3.29-11.43) 09/19/24 23:43 RBC 4.52 10^6/uL (3.85-5.65) 09/19/24 23:43 Hgb 12.70 g/dL (11.27-16.99) 09/19/24 23:43 Hct 39.1 % (36-47) 09/19/24 23:43 MCV 86.5 fl (85-98) 09/19/24 23:43 MCH 28.1 pg (27-33) 09/19/24 23:43 MCHC 32.5 g/dL (30-55) 09/19/24 23:43 RDW 13.5 % (12.1-15.1) 09/19/24 23:43 Plt Count 201 10^3/cmm (157-399) 09/19/24 23:43 MPV 8.9 fL (7.4-10.4) 09/19/24 23:43 Neut % (Auto) 63.0 % 09/19/24 23:43 Lymph % (Auto) 19.6 % 09/19/24 23:43 [place] % (Auto) 17.1 % 09/19/24 23:43 Eos % (Auto) 0.0 % 09/19/24 23:43 Baso % (Auto) 0.0 % 09/19/24 23:43 Neut # (Auto) 2.47 10^3/uL (1.8-7.7) 09/19/24 23:43 Lymph # (Auto) 0.8 10^3/uL (0.8-4.8) 09/19/24 23:43 [place] # (Auto) 0.7 10^3/uL (0.2-0.9) 09/19/24 23:43 Eos # (Auto) 0.0 10^3/uL (0.0-0.8) 09/19/24 23:43 Baso # (Auto) 0.0 10^3/uL (0.0-0.1) 09/19/24 23:43 Nucleated RBC % (auto) 0 % 09/19/24 23:43 Nucleated RBCs # 0.0 /100WBC 09/19/24 23:43 Sodium 142 mmol/L (136-145) 09/19/24 23:43 Potassium 3.9 mmol/L (3.5-5.1) 09/19/24 23:43 Chloride 106 mmol/L (98-107) 09/19/24 23:43 Carbon Dioxide 25 mmol/L (22-29) 09/19/24 23:43 Anion Gap 14.9 (5-19) 09/19/24 23:43 BUN 18 mg/dL (8-23) 09/19/24 23:43 Creatinine 0.8 mg/dL (0.5-0.9) 09/19/24 23:43 GFR Calculation 71.1 mL/min (90-130) L 09/19/24 23:43 Glucose 98 mg/dL (65-115) 09/19/24 23:43 Calculated Osmolality 296 mOsm/kg (285-295) H 09/19/24 23:43 Calcium 8.7 mg/dL (8.5-10.5) 09/19/24 23:43 Total Bilirubin 0.2 mg/dL (0.15-1.2) 09/19/24 23:43 AST 23 U/L (0-32) 09/19/24 23:43 ALT 17 U/L (0-33) 09/19/24 23:43 Alkaline Phosphatase 103 U/L (35-105) 09/19/24 23:43 Troponin T Baseline 9 ng/L (0-10) 09/19/24 23:43 Troponin T 120 Minute 8.43 ng/L (0-10) 09/20/24 01:26 Delta Troponin T -0.57 ABS# (0-10) L 09/20/24 01:26 NT-Pro-B Natriuret Pep 132 pg/mL (0-125) H 09/19/24 23:43 Total Protein 6.5 g/dL (6.6-8.7) L 09/19/24 23:43 Albumin 4.1 g/dL (3.5-5.2) 09/19/24 23:43 Globulin 2.4 g/dL (1.3-4.6) 09/19/24 23:43 TSH 4.99 uIU/mL (0.27-4.20) H 09/19/24 23:43 All radiology interpretation(s) finalized by discharge Discharge Plan Discharge Patient Disposition: Home Clinical Impression: Palpitations Condition: Stable Prescriptions: No Action clobetasol 0.05 % cream topical fluocinonide 0.05 % cream 1 applic topical DAILY fluocinonide 0.05 % solution 1 applic topical .qhs PRN famotidine 20 mg tablet 20 mg PO BID Qty: 180 3RF sulfamethoxazole-trimethoprim [Bactrim DS] 800-160 mg tablet 1 tab PO BID Qty: 14 0RF prednisone 20 mg tablet 20 mg PO BID Qty: 10 0RF hydroxychloroquine [Plaquenil] 200 mg tablet 200 mg PO DAILY epinephrine 0.3 mg/0.3 mL auto-injector 0.3 mg IM povidone-iodine [Betadine Swabsticks] 10 % swab 1 applic topical ONCE Qty: 1 0RF cefdinir 300 mg capsule 300 mg PO BID 7 Days Qty: 14 0RF levothyroxine 112 mcg tablet 112 mcg PO DAILY Qty: 90 1RF Discharge Orders: Discharge ED (Routine); Ordered 09/20/24 Ordered By: Dilan Howell Referrals: Linn Lyon MD [Primary Care Provider] - 1-3 days Patient Instructions: Heart Palpitations (ED), Opioid Safety, Pain Management Activity Restrictions/Additional Instructions: If available, check your heart rate and blood pressure twice daily. Log numbers for your physician. Return for worsening feelings of heart jumping, chest pressure, any other concerning symptoms. Follow-up with your doctor. Call tomorrow for an appointment. Print Language: American Coding Level of Care Code ED Observer [employer] for Portia Bailey
[2024-09-20 00:16] LABS: Troponin(5th) Baseline 9 ng/L (0-10)
[2024-09-20 00:25] VITALS: BP 126/77; PULSE 69; RESP 14; O2SAT 97
[2024-09-20 00:26] LABS: Alanine Aminotransferase 17 U/L (0-33); Albumin Level 4.1 g/dL (3.5-5.2); Alkaline Phosphatase 103 U/L (35-105); Aspartate Amino Transferase 23 U/L (0-32); Blood Urea Nitrogen 18 mg/dL (8-23); Calcium 8.7 mg/dL (8.5-10.5); Carbon Dioxide 25 mmol/L (22-29); Chloride 106 mmol/L (98-107); Creatinine Clr Calc Pharmacy 69.0194; Globulin 2.4 g/dL (1.3-4.6); Glomerular Filtration Rate 71.1 mL/min (90-130); Glucose 98 mg/dL (65-115); NT Pro B Type Natriuretic Pept 132 pg/mL (0-125); Osmolality Calculated 296 mOsm/kg (285-295); Sodium 142 mmol/L (136-145); Thyroid Stimulating Hormone 4.99 uIU/mL (0.27-4.20); Total Bilirubin 0.2 mg/dL (0.15-1.2); Total Protein 6.5 g/dL (6.6-8.7)
[2024-09-20 00:27] LABS: Anion Gap 14.9 (5-19); Potassium 3.9 mmol/L (3.5-5.1)
[2024-09-20 01:29] VITALS: BP 124/70; PULSE 66; RESP 14; O2SAT 98
[2024-09-20 01:55] LABS: Troponin 5 2HR 8.43 ng/L (0-10)
[2024-09-20 01:56] LABS: Troponin 5 2HR Delta -0.57 ABS# (0-10)
[2024-09-20 03:22] VITALS: BP 121/74; PULSE 72; RESP 22; O2SAT 93
== END 2024-09-20 02:58 | disposition home or self-care (01) ==
PROVIDERS: Emergency Provider Emergency Medicine; PCP Family Medicine
DX: R00.2 Palpitations (principal); Z85.850 Personal history of malignant neoplasm of thyroid
CPT/HCPCS: 36415; 71045; 80053; 83880; 84443; 84484; 85025; 93005; 99285

== ENCOUNTER 2024-09-28 06:00 | Outpatient (RCR) | payer MEDICARE, SELFPAY | END 2024-10-25 23:59 | disposition home or self-care (01) | LOC: TPT 06:00 | PROVIDERS: PCP Family Medicine; Visit Provider Specialist/Technologist Athletic Trainer | DX: M17.12 Unilateral primary osteoarthritis, left knee (principal) | CPT/HCPCS: 97110; 97162 ==

== ENCOUNTER → 2024-10-05 14:26 | Outpatient (BNVA) | payer MEDICARE, SELFPAY | PROVIDERS: PCP Family Medicine; Visit Provider Nurse Practitioner Family | DX: R39.9 Unspecified symptoms and signs involving the genitourinary system (principal); N39.0 Urinary tract infection, site not specified | CPT/HCPCS: 81000; 87086 ==

== ENCOUNTER 2024-10-26 05:00 | Outpatient (RCR) | payer MEDICARE, SELFPAY | END 2024-11-24 23:59 | disposition home or self-care (01) | LOC: TPT 05:00 | PROVIDERS: PCP Family Medicine; Visit Provider Specialist/Technologist Athletic Trainer | DX: M17.12 Unilateral primary osteoarthritis, left knee (principal) | CPT/HCPCS: 97110 ==

== ENCOUNTER 2024-10-28 16:59 | Emergency (ER) | payer MEDICARE, SELFPAY ==
[2024-10-28 17:01] VITALS: BP 184/83; PULSE 76; TEMP 36.6; O2SAT 97; BMI 37.0
--- NOTE | 2024-10-28 17:06 | ECG_ITS ---
[facility] Test Date: 2024-10-28 Pat Name: Sindi Linton Department: Room: Gender: Female President And Chief Executive Officer: : 1955 Requested By: Bladimir Boone Order Number: [id number] Brittney MD: Chet Alonzo M.D. Measurements Intervals [place] Rate: 69 P: 57 TX: 178 QRS: -4 QRSD: 104 T: 30 QT: 404 QTc: 435 Interpretive Statements SINUS RHYTHM LOW QRS VOLTAGE IN PRECORDIAL LEADS [QRS DEFLECTION < 1.0 mV IN CHEST LEADS] POSSIBLE ANTERIOR MYOCARDIAL INFARCTION , PROBABLY OLD [30 ms Q WAVE IN V3/V4, OR R < 0.2 mV IN V4] INTERPRETATION BASED ON A DEFAULT AGE OF 40 YEARS Compared to ECG 09/19/2024 23:25:14 No significant changes Electronically Signed On 10-28-2024 17:34:10 CDT by Chet Alonzo M.D. [id number] [id number]
--- NOTE | 2024-10-28 17:16 | XRR_ITS ---
PROCEDURE INFORMATION: Exam: XR Chest Exam date and time: 10/28/2024 5:28 PM Age: 69 years old Clinical indication: Pain; Chest pressure; Additional info: Chest pain TECHNIQUE: Imaging protocol: Radiologic exam of the chest. Views: 1 view. COMPARISON: CR (CHEST, ) 09/19/2024 11:11 PM FINDINGS: Lungs: Calcified granuloma in the right mid lung field redemonstrated. No focal consolidation. Pleural spaces: Unremarkable. No pleural effusion. No pneumothorax. Heart/Mediastinum: Unremarkable. No cardiomegaly. Bones/joints: Severe degenerative changes in the right acromioclavicular joint. XR/XR chest 1V portable [id number] IMPRESSION: No focal consolidation.
[2024-10-28 17:36] LABS: Hematocrit 43.1 % (36-47); Lymphocytes # 0.7 10^3/uL (0.8-4.8); Lymphocytes % 21.3 %; Mean Corpuscular HGB Conc 32.5 g/dL (30-55); Mean Corpuscular Hemoglobin 27.7 pg (27-33); Mean Corpuscular Volume 85.3 fl (85-98); Monocytes # 0.5 10^3/uL (0.2-0.9); Monocytes % 14.7 %; Neutrophils # 2.14 10^3/uL (1.8-7.7); Nucleated Red Blood Cells % 0 %; Platelet Count 204 10^3/cmm (157-399); Red Blood Count 5.05 10^6/uL (3.85-5.65); White Blood Count 3.34 10^3/uL (3.29-11.43)
--- NOTE | 2024-10-28 17:40 | ED_ITS ---
HPI - Chest Pain 2 General: Chief Complaint: Chest Pain Stated Complaint: CP Time Seen by Provider: 10/28/24 17:16 History of Present Illness: Patient presents to the ER with complaints of left-sided chest pain and epigastric pain. Patient does have issues with gastritis and is on daily Tums antacids and Prilosec. Patient has had these episodes in the past. She is scheduled for Holter monitor for the same issues. Patient is without complaints at this time. Patient denies any nausea vomiting shortness of breath coughs colds fevers chills etc. Related Data Home Medications ?Medication ?Instructions ?Recorded ?Confirmed epinephrine 0.3 mg/0.3 mL 0.3 mg IM 03/03/23 10/05/24 injection, auto-injector clobetasol 0.05 % topical cream topical 08/28/2310/05 fluocinonide 0.05 % topical cream 1 applic topical MILAD LY 08/28/23 10/05/24 fluocinonide 0.05 % topical 1 applic topical .qhs PRN 08/28/23 10/05/24 solution hydroxychloroquine 200 mg tablet 200 mg PO DAILY 08/2810/05/24 (Plaquenil) Previous Rx's ?Medication ?Instructions ?Recorded famotidine 20 mg tablet 20 mg PO BID #180 tabs 01/19 levothyroxine 112 mcg tablet 112 mcg PO DAILY #90 tabs 06/28/24 ciprofloxacin HCl 500 mg tablet 500 mg PO BID #20 tabs 10/05/24 Allergies Allergy/AdvReac Type Severity Reaction Status Date / Time amoxicillin Allergy Mild SWELLING Verified 10/28/24 17:12 ampicillin Allergy Unknown Verified 10/28/24 17:12 azathioprine (From Imuran) Allergy ALGY-Swell Verified 10/28/24 17:12 Lip/Tongue/Throat azithromycin Allergy ALGY-Swell Verified 10/28/24 17:12 Lip/Tongue/Throat Influenza Virus Vaccines Allergy local Verified 10/28/24 17:12 reaction Review of Systems 2 General: Reports: 10 or more systems reviewed and unremarkable except in HPI and below PFSH ED 2 PFSH: Medical History Seronegative rheumatoid arthritis History of thyroid cancer Hypothyroid Surgical History History of thyroidectomy History of abdominoplasty History of cholecystectomy History of laparoscopic adjustable gastric banding History of total hysterectomy with bilateral salpingo-oophorectomy (BSO) benign, pelvic organ prolapse History of appendectomy Family History Mother Lymphoma Diverticula of colon Father Prostate cancer Sister Lung cancer smoker Brother Colon cancer Brother CAD (coronary artery disease) Stroke Social History Smoking and tobacco/nicotine status: never used tobacco/nicotine Second hand smoke exposure: No Alcohol intake: never Substance/Drug Use: never Lives independently: Yes Household members: spouse Marital status: Marital status details: 49 years in 2023 Number of children: 3 Number of grandchildren: 6 service: No Current occupational status: retired Previous occupational history: worked at [employer] for [employer] years Current gender identity: Female Ariela/Evangelical: Lutheran Special ariela needs: No Agree to transfusion: Yes Physical Exam 2 Const: COMMON NORMALS: no acute distress, average body habitus, patient oriented x3, no limitations, healthy appearing, alert and well nourished HENMT: COMMON NORMALS: normocephalic, atraumatic, hearing grossly normal bilaterally, external ears normal, Normal external nose present, moist oral mucous membranes and oropharynx normal HEAD & SCALP: normocephalic and atraumatic NOSE: Normal external nose present EXTERNAL EAR: Yes external ears normal Neck/C-Spine: COMMON NORMALS: full ROM, no lymphadenopathy, supple, no meningeal signs, no JVD and Thyroid normal THYROID: Thyroid normal Chest: COMMONS NORMALS: normal inspection of the chest and normal palpation of entire chest wall Resp: COMMON NORMALS: normal respiratory effort, No retractions, No use of accessory muscles and clear to auscultation bilaterally AUSCULTATION: clear to auscultation bilaterally Cardio: COMMON NORMALS: no JVD, regular rate, regular rhythm, S1 normal heart sound present, S2 normal heart sound present, No gallops present (Cardio), No clicks present (Cardio), No murmurs present (Cardio) and No rub (Cardio) R ATE: regular rate RHYTHM: regular rhythm HEART SOUNDS: S1 normal heart sound present and S2 normal heart sound present GI: COMMON NORMALS: Normal to inspection, nondistended, normoactive bowel sounds present, Soft to palpation, non-tender, No hepatosplenomegaly present and no masses PALPATION: Yes Soft to palpation and Yes No hepatosplenomegaly present Neuro: COMMON NORMALS: patient oriented x3 SENSORIUM/ORIENTATION: Yes alert MENINGEAL SIGNS: Yes no meningeal signs Course 2 Vital Signs: Vital signs: Vital Signs Temperature 97.9 F 10/28/24 17:01 Pulse Rate 67 10/28/24 19:08 Respiratory Rate 16 10/28/24 19:08 Blood Pressure 147/80 10/28/24 19:08 Pulse Oximetry 96 10/28/24 19:08 Oxygen Delivery Me thod Room Air 10/28/24 19:08 MDM - Chest Pain Medical Decision Making Lab work, chest x-ray are both unremarkable, patient had a contaminated urinary specimen. We wait for culture to see if it grows back anything other than skin bacteria. Patient was instructed to increase her acid use fall waiting for the Prilosec that she is only been on for 2 days to take full effect. Medical Records I reviewed the patient's medical records. Lab Data I reviewed the patient's lab results. 10/28/24 17:28 10/28/24 17:28 Radiology Impressions Chest X-Ray 10/28/24 17:16 IMPRESSION: No focal consolidation. Laboratory Results WBC 3.34 10^3/uL (3.29-11.43) 10/28/24 17:28 RBC 5.05 10^6/uL (3.85-5.65) 10/28/24 17:28 Hgb 14.00 g/dL (11.27-16.99) 10/28/24 17:28 Hct 43.1 % (36-47) 10/28/24 17:28 MCV 85.3 fl (85-98) 10/28/24 17:28 MCH 27.7 pg (27-33) 10/28/24 17:28 MCHC 32.5 g/dL (30-55) 10/28/24 17:28 RDW 14.0 % (12.1-15.1) 10/28/24 17:28 Plt Count 204 10^3/cmm (157-399) 10/28/24 17:28 MPV 9.0 fL (7.4-10.4) 10/28/24 17: Neut % (Auto) 64.0 % 10/28/24 17: Lymph % (Auto) 21.3 % 10/28/24 17: [place] % (Auto) 14.7 % 10/28/24 17: Eos % (Auto) 0.0 % 10/28/24 17: Baso % (Auto) 0.0 % 10/28/24 17: Neut # (Auto) 2.14 10^3/uL (1.8-7.7) 10/28/24 17: Lymph # (Auto) 0.7 10^3/uL (0.8-4.8) L 10/28/24 17: [place] # (Auto) 0.5 10^3/uL (0.2-0.9) 10/28/24 17: Eos # (Auto) 0.0 10^3/uL (0.0-0.8) 10/28/24 17: Baso # (Auto) 0.0 10^3/uL (0.0-0.1) 10/28/24 17: Nucleated RBC % (auto) 0 % 10/28/24 17: Nucleated RBCs # 0.0 /100WBC 10/28/24 17: PT 12.40 SECONDS (12.1-14.9) 10/28/24 17: INR 0.87 (0.8-1.2) 10/28/24 17: Sodium 144 mmol/L (136-145) 10/28/24 17: Potassium 3.8 mmol/L (3.5-5.1) 10/28/24 17: Chloride 105 mmol/L (98-107) 10/28/24 17: Carbon Dioxide 26 mmol/L (22-29) 10/28/24 17: Anion Gap 16.8 (5-19) 10/28/24 17: BUN 15 mg/dL (8-23) 10/28/24 17: Creatinine 0.6 mg/dL (0.5-0.9) 10/28/24 17: GFR Calculation 99.1 mL/min (90-130) 10/28/24 17: Glucose 89 mg/dL (65-115) 10/28/24 17:28 Calculated Osmolality 298 mOsm/kg (285-295) H 10/28/24 17:28 Calcium 9.3 mg/dL (8.5-10.5) 10/28/24 17:28 Magnesium 2.2 mg/dL (1.7-2.3) 10/28/24 17:28 Total Bilirubin 0.3 mg/dL (0.15-1.2) 10/28/24 17:28 AST 26 U/L (0-32) 10/28/24 17:28 ALT 21 U/L (0-33) 10/28/24 17:28 Alkaline Phosphatase 79 U/L (35-105) 10/28/24 17:28 Troponin T Baseline 11 ng/L (0-10) H 10/28/24 17:28 Troponin T 120 Minute 10.47 ng/L (0-10) H 10/28/24 19:14 Delta Troponin T -0.53 ABS# (0-10) L 10/28/24 19:14 NT-Pro-B Natriuret Pep 197 pg/mL (0-125) H 10/28/24 17:28 Total Protein 6.5 g/dL (6.6-8.7) L 10/28/24 17:28 Albumin 4.5 g/dL (3.5-5.2) 10/28/24 17:28 Globulin 2.0 g/dL (1.3-4.6) 10/28/24 17:28 All radiology interpretation(s) finalized by discharge Discharge Plan Discharge Patient Disposition: Home Clinical Impression: Atypical chest pain Gastritis Qualifiers: Gastritis type: unspecified gastritis Chronicity: acute Gastritis bleeding: w ithout bleeding Qualified Code(s): K29.00 - Acute gastritis without bleeding Condition: Stable Prescriptions: No Action clobetasol 0.05 % cream topical fluocinonide 0.05 % cream 1 applic topical DAILY fluocinonide 0.05 % solution 1 applic topical .qhs PRN famotidine 20 mg tablet 20 mg PO BID Qty: 180 3RF hydroxychloroquine [Plaquenil] 200 mg tablet 200 mg PO DAILY epinephrine 0.3 mg/0.3 mL auto-injector 0.3 mg IM povidone-iodine [Betadine Swabsticks] 10 % swab 1 applic topical ONCE Qty: 1 0RF ciprofloxacin HCl 500 mg tablet 500 mg PO BID Qty: 20 0RF levothyroxine 112 mcg tablet 112 mcg PO DAILY Qty: 90 1RF Discharge Orders: Discharge ED (Routine); Ordered 10/28/24 Ordered By: Bladimir Boone Referrals: Linn Lyon MD [Primary Care Provider] - 1 week Patient Instructions: Diet for Stomach Ulcers and Gastritis (ED), Gastritis (DC) Activity Restrictions/Additional Instructions: Activity restrictions/additional instructions: Thank you for choosing [facility] for your healthcare needs today. Please realize that you were seen in the emergency department and that we are providing you with an emergency medical screening exam and this may not be a complete and all exclusive of all testing and/or medical workup we may need to determine your element or severity of your illness. It is very important that you follow-up as instructed with your primary care provider or specialist for the additional evaluation and to discuss your medical treatment plan. You may return to the emergency department should you have concerns or if your condition changes or worsens in any way. Print Language: Albanian Coding Level of Care Code ED Production Administrator for Portia Bailey
[2024-10-28 17:45] VITALS: PULSE 66; RESP 19; O2SAT 99
[2024-10-28 18:14] LABS: INR 0.87 (0.8-1.2)
[2024-10-28 18:16] LABS: Troponin(5th) Baseline 11 ng/L (0-10)
[2024-10-28 18:26] LABS: Alanine Aminotransferase 21 U/L (0-33); Albumin Level 4.5 g/dL (3.5-5.2); Alkaline Phosphatase 79 U/L (35-105); Anion Gap 16.8 (5-19); Aspartate Amino Transferase 26 U/L (0-32); Blood Urea Nitrogen 15 mg/dL (8-23); Calcium 9.3 mg/dL (8.5-10.5); Carbon Dioxide 26 mmol/L (22-29); Chloride 105 mmol/L (98-107); Creatinine Clr Calc Pharmacy 67.3087; Glomerular Filtration Rate 99.1 mL/min (90-130); Glucose 89 mg/dL (65-115); Magnesium 2.2 mg/dL (1.7-2.3); NT Pro B Type Natriuretic Pept 197 pg/mL (0-125); Osmolality Calculated 298 mOsm/kg (285-295); Potassium 3.8 mmol/L (3.5-5.1); Sodium 144 mmol/L (136-145); Total Bilirubin 0.3 mg/dL (0.15-1.2); Total Protein 6.5 g/dL (6.6-8.7)
[2024-10-28 19:08] VITALS: BP 147/80; PULSE 67; RESP 16; O2SAT 96
--- NOTE | 2024-10-28 19:14 | ECG_ITS ---
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
[2024-10-28 19:54] LABS: Troponin 5 2HR 10.47 ng/L (0-10)
[2024-10-28 19:55] LABS: Troponin 5 2HR Delta -0.53 ABS# (0-10)
[2024-10-28 20:20] VITALS: BP 146/71; PULSE 65; RESP 21; O2SAT 97
[2024-10-28 21:44] VITALS: BP 157/67; PULSE 60; RESP 14; O2SAT 97
== END 2024-10-28 20:45 | disposition home or self-care (01) ==
PROVIDERS: Emergency Provider Emergency Medicine; PCP Family Medicine
DX: R07.9 Chest pain, unspecified (principal); K29.00 Acute gastritis without bleeding; Z85.850 Personal history of malignant neoplasm of thyroid
CPT/HCPCS: 36415; 71045; 80053; 83735; 83880; 84484; 85025; 85610; 93005; 99285

== ENCOUNTER 2024-11-25 05:00 | Outpatient (RCR) | payer MEDICARE, SELFPAY | END 2024-12-21 11:06 | disposition home or self-care (01) | LOC: TPT 05:00 | PROVIDERS: PCP Family Medicine; Visit Provider Specialist/Technologist Athletic Trainer | DX: M17.12 Unilateral primary osteoarthritis, left knee (principal) | CPT/HCPCS: 97110 ==

== ENCOUNTER → 2024-12-06 10:48 | Outpatient (BNVA) | payer MEDICARE, SELFPAY | PROVIDERS: PCP Family Medicine; Visit Provider Family Medicine | DX: E03.9 Hypothyroidism, unspecified (principal) | CPT/HCPCS: 84443 ==

== ENCOUNTER → 2025-01-19 14:33 | Outpatient (BNVA) | payer MEDICARE, SELFPAY | PROVIDERS: PCP Family Medicine; Visit Provider Family Medicine | DX: R21 Rash and other nonspecific skin eruption (principal) | CPT/HCPCS: 88305 ==

== ENCOUNTER 2025-01-24 06:54 | Outpatient (CLI) | payer MEDICARE, SELFPAY ==
[2025-01-24] MEDS: iohexol 350 mg/mL 500 mL Btl (per mL) PO (07:58)
[2025-01-24 08:11] LABS: Blood Urea Nitrogen 9 mg/dL (8-23); Glomerular Filtration Rate 71.1 mL/min (90-130)
--- NOTE | 2025-01-24 08:15 | CTR_ITS ---
PROCEDURE INFORMATION: Exam: CT Abdomen And Pelvis With Contrast Exam date and time: 01/24/2025 8:12 AM Age: 69 years old Clinical indication: Abdominal pain; Localized; Left lower quadrant (llq); Prior surgery; Surgery date: 6+ months; Surgery type: Gb, appy, lap band, fat removal, hyst; HX of thyroid cancer; Additional info: Llq pain x 2 months TECHNIQUE: Imaging protocol: Computed tomography of the abdomen and pelvis with contrast. Radiation optimization: All CT scans at this facility use at least one of these dose optimization techniques: automated exposure control; mA and/or kV adjustment per patient size (includes targeted exams where dose is matched to clinical indication); or iterative reconstruction. Contrast material: OMNI 350; Contrast volume: 100 ml; Contrast route: INTRAVENOUS (IV); COMPARISON: CR (CHEST, ) 10/28/2024 5:28 PM RADIATION DOSE METRICS: Total DLP (mGy-cm): 704.34 FINDINGS: Tubes, catheters and devices: Lap band projecting in usual position. Lungs: Lung bases are clear as visualized. Diaphragm: Small hiatal hernia. Liver: Normal. No mass. Gallbladder and biliary ducts: Cholecystectomy. Unremarkable bile ducts. Pancreas: Normal. No ductal dilation. Spleen: Normal. No splenomegaly. Adrenal glands: Normal. No mass. Kidneys and ureters: A small left renal cyst needs no follow-up. Otherwise, unremarkable. Stomach and bowel: Diverticula from the colon. No diverticulitis. Otherwise, unremarkable. Appendix: Appendectomy. Intraperitoneal space: Unremarkable. No free air. No significant fluid collection. Vasculature: Unremarkable. No abdominal aortic aneurysm. Lymph nodes: Unremarkable. No enlarged lymph nodes. Urinary bladder: Unremarkable. Reproductive: Hysterectomy. Otherwise, unremarkable. Bones/joints: Mild scoliosis. Mild and moderate multilevel spondylosis. Otherwise, unremarkable. Soft tissues: Surgical material anterior body wall. Otherwise, unremarkable visualized body wall. Otherwise, unremarkable soft tissues. CT/CT abdomen pelvis w con* [id number] IMPRESSION: 1. No acute findings. 2. Additional details as above.
[2025-01-24] MEDS: iohexol 350 mg/mL 500 mL Btl (per mL) IV (08:20)
== END 2025-01-24 06:55 | disposition home or self-care (01) ==
LOC: RAD 06:55
PROVIDERS: PCP Family Medicine; Visit Provider Family Medicine
DX: R10.32 Left lower quadrant pain (principal); Z90.49 Acquired absence of other specified parts of digestive tract; N28.1 Cyst of kidney, acquired; Z90.710 Acquired absence of both cervix and uterus
CPT/HCPCS: 74177; 82565; 84520

== ENCOUNTER 2025-01-25 05:00 | Outpatient (RCR) | payer MEDICARE, SELFPAY | END 2025-02-24 23:59 | disposition home or self-care (01) | LOC: TPT 05:00 | PROVIDERS: PCP Family Medicine; Visit Provider Specialist/Technologist Athletic Trainer | DX: M17.12 Unilateral primary osteoarthritis, left knee (principal); M54.50 Low back pain, unspecified | CPT/HCPCS: 97110; 97162 ==

== ENCOUNTER 2025-02-16 12:33 | Outpatient (CLI) | payer MEDICARE, SELFPAY ==
--- NOTE | 2025-02-16 13:00 | XR_ITS ---
WS: [id number] SCREENING DEXA SCAN [facility] CLINICAL INFORMATION: osteoporosis screening COMPARISON: None. FINDINGS: The L1-L4 bone mineral density measures 1.49. This corresponds to a T score score of 2.6 and Z score of 3.5. Left femoral neck bone mineral density measures 1.056 g/cm2. This corresponds to a T score of 0.4 and Z score of 1.3. Right femoral neck bone mineral density measures 1.029 g/cm2. This corresponds to a T score 0.2of and Z score of 1.0. Mean femoral neck bone mineral density measures 1.042 g/cm2. This corresponds to a T score of 0.3 and Z score of 1.2. XR/XR DEXA axial skeleton* [id number] IMPRESSION: Normal bone mineralization. Patient's FRAX calculated 10 year probability for major osteoporotic fracture i s 7.4% and osteoporotic hip fracture is 0.6%.
== END 2025-02-16 12:34 | disposition home or self-care (01) ==
LOC: RAD 12:34
PROVIDERS: PCP Family Medicine; Visit Provider Family Medicine
DX: Z13.820 Encounter for screening for osteoporosis (principal); Z78.0 Asymptomatic menopausal state
CPT/HCPCS: 77080

== ENCOUNTER 2025-02-25 05:00 | Outpatient (RCR) | payer MEDICARE, SELFPAY | END 2025-03-27 23:59 | disposition home or self-care (01) | LOC: TPT 05:00 | PROVIDERS: PCP Family Medicine; Visit Provider Specialist/Technologist Athletic Trainer | DX: M17.12 Unilateral primary osteoarthritis, left knee (principal); M25.562 Pain in left knee | CPT/HCPCS: 97110 ==

== ENCOUNTER 2025-03-28 05:00 | Outpatient (RCR) | payer MEDICARE, SELFPAY | END 2025-04-26 23:59 | disposition home or self-care (01) | LOC: TPT 05:00 | PROVIDERS: PCP Family Medicine; Visit Provider Specialist/Technologist Athletic Trainer | DX: M17.12 Unilateral primary osteoarthritis, left knee (principal); M54.50 Low back pain, unspecified | CPT/HCPCS: 97110 ==

== ENCOUNTER 2025-06-24 11:00 | Outpatient (RCR) | payer MEDICARE, SELFPAY | END 2025-06-26 23:59 | disposition home or self-care (01) | LOC: TPT 11:00 | PROVIDERS: PCP Family Medicine; Visit Provider Specialist/Technologist Athletic Trainer | DX: M17.12 Unilateral primary osteoarthritis, left knee (principal); M54.50 Low back pain, unspecified | CPT/HCPCS: 97110; 97116; 97161 ==

== ENCOUNTER 2025-07-22 10:00 | Outpatient (RCR) | payer MEDICARE, SELFPAY | END 2025-07-27 23:59 | disposition home or self-care (01) | LOC: TPT 10:00 | PROVIDERS: PCP Family Medicine; Visit Provider Specialist/Technologist Athletic Trainer | DX: M17.12 Unilateral primary osteoarthritis, left knee (principal); M54.50 Low back pain, unspecified | CPT/HCPCS: 97110; 97116; 97140 ==